=== PATIENT | male | born 1980 | race Caucasian/White ===

== ENCOUNTER 2016-11-01 18:23 | Emergency (ER) | payer OTHER ==
[~2016-11-01] VITALS: Ht 175.3 cm; Wt 127.3 kg
[2016-11-01 18:42] LABS: GLUCOSE,POINT OF CARE 291 MG/DL (70-110)
[2016-11-01] MEDS ORDERED: PERTUSS(ACELL),DIPH,TET VAC/PF 0.5 ML VIAL IM ONE (18:45)
[2016-11-01] MEDS ORDERED: HYDROCODONE/ACETAMINOPHEN 5-325 MG TABLET PO ONE (18:45)
[2016-11-01] MEDS ORDERED: LIDOCAINE HCL 1% 20 ML VIAL INJ ONE (18:45)
[2016-11-01] MEDS ORDERED: LIDOCAINE HCL 1% 10 ML VIAL INJ ONE (19:00)
[2016-11-01] MEDS ORDERED: POVIDONE-IODINE 10% 15 ML SOLUTION UD TP ONE (19:30)
[2016-11-01 19:46] VITALS: BP 132/87
== END 2016-11-01 20:30 | disposition home or self-care (01) ==
LOC: EMS 18:25
DX: S61.210A Laceration without foreign body of right index finger without damage to nail, initial encounter (principal); S61.212A Laceration without foreign body of right middle finger without damage to nail, initial encounter; E11.9 Type 2 diabetes mellitus without complications; W45.8XXA Other foreign body or object entering through skin, initial encounter; Y93.89 Activity, other specified; Y92.89 Other specified places as the place of occurrence of the external cause; Y99.8 Other external cause status
CPT/HCPCS: 12002; 73130; 82962; 90471; 90715; 99284; J3490

== ENCOUNTER 2024-03-26 12:19 | Emergency (ER) | payer MEDICAID, OTHER ==
[~2024-03-26] VITALS: Ht 172.7 cm; Wt 113.6 kg
[2024-03-26] MEDS ORDERED: INSU3INS3 SQ (12:24)
[2024-03-26] MEDS ORDERED: ATOR40TA71 PO (12:24)
[2024-03-26] MEDS ORDERED: METF-1211 PO (12:24)
[2024-03-26] MEDS ORDERED: LISI20TA24 PO (12:24)
[2024-03-26 12:25] VITALS: BP 131/90; PULSE 94; RESP 18; TEMP 97.9; O2SAT 99
[2024-03-26] MEDS: PROPARACAINE HCL 0.5% 15 ML OPHTHALMIC SOLUTION OU ONE (14:00)
[2024-03-26] MEDS: FLUORESCEIN SODIUM 1 MG STRIP OU ONE (14:00)
== END 2024-03-26 14:37 | disposition home or self-care (01) ==
LOC: EMS 12:19
DX: H53.8 Other visual disturbances (principal); E11.9 Type 2 diabetes mellitus without complications; I10 Essential (primary) hypertension; Z79.4 Long term (current) use of insulin; Z79.84 Long term (current) use of oral hypoglycemic drugs; Z79.899 Other long term (current) drug therapy
CPT/HCPCS: 82962; 99283